=== PATIENT | female | born 1990 | race Caucasian/White ===

== ENCOUNTER → 2016-10-27 | Outpatient (CLI) | payer BC ==
[2016-10-27 16:35] LABS: BASOPHILS # (AUTO) 0.1 10^3/uL (0.0-0.1); BASOPHILS % (AUTO) 2 % (0-10); EOSINOPHILS # (AUTO) 0.1 10^3/uL (0.0-0.3); EOSINOPHILS % (AUTO) 1 % (0-10); LYMPHOCYTES # (AUTO) 1.9 X 10^3 (1.0-4.0); LYMPHOCYTES % (AUTO) 45 % (12-44); MEAN CORPUSCULAR HEMOGLOBIN 31 PG (25-34); MEAN CORPUSCULAR HGB CONC 35 G/DL (32-36); MEAN CORPUSCULAR VOLUME 89 FL (80-99); MEAN PLATELET VOLUME 8.9 FL (7.4-10.4); MONOCYTES # (AUTO) 0.4 X 10^3 (0.0-1.0); MONOCYTES % (AUTO) 10 % (0-12); NEUTROPHILS # (AUTO) 1.7 X 10^3 (1.8-7.8); NEUTROPHILS % (AUTO) 41 % (42-75); PLATELET COUNT 295 10^3/uL (130-400); RED BLOOD COUNT 4.58 10^6/uL (4.35-5.85); RED CELL DISTRIBUTION WIDTH 11.2 % (10.0-14.5); WHITE BLOOD COUNT 4.2 10^3/uL (4.3-11.0)
[2016-10-27 16:56] LABS: ALANINE AMINOTRANSFERASE 46 U/L (0-55); ALBUMIN 4.2 G/DL (3.2-4.5); ANION GAP 8 MMOL/L (5-14); ASPARTATE AMINO TRANSFERASE 24 U/L (5-34); BILIRUBIN,TOTAL 0.3 MG/DL (0.1-1.0); BLOOD UREA NITROGEN 9 MG/DL (7-18); BUN/CREATININE RATIO 12; CALCIUM 9.2 MG/DL (8.5-10.1); CARBON DIOXIDE 26 MMOL/L (21-32); CHLORIDE 107 MMOL/L (98-107); CHOLESTEROL 204 MG/DL (< 200); CREATININE SERUM 0.77 MG/DL (0.60-1.30); DIRECT LDL 128 MG/DL (1-129); GFR ESTIMATED > 60; GLUCOSE 88 MG/DL (70-105); LIPASE 21 U/L (8-78); POTASSIUM 3.9 MMOL/L (3.6-5.0); SODIUM 141 MMOL/L (135-145); TRIGLYCERIDES 148 MG/DL (<150); VLDL CHOLESTEROL 30 MG/DL (5-40)
--- NOTE | 2016-10-27 16:56 | Diagnostic Imaging Report ---
Hepatic ultrasound. INDICATION: Right upper quadrant pain and nausea. FINDINGS: The visualized portions of the pancreas appear unremarkable. The liver demonstrates no focal lesion. There is homogeneous echotexture. There is hepatopetal flow in the portal vein seen. The gallbladder demonstrates no stones or wall thickening. No pericholecystic fluid. The CBD is 2 mm in caliber. The right kidney is 9.3 cm in length with no hydronephrosis or focal lesion. No fluid collection in the upper right abdomen is seen. Sonographic Morrow's sign is reportedly negative. IMPRESSION: Unremarkable exam. Dictated by: Dictated on workstation # [id number]
== END ==
LOC: RAD 16:03
PROVIDERS: ATTEND Family Medicine
DX: R10.11 Right upper quadrant pain (principal); R11.0 Nausea
CPT/HCPCS: 36415; 76705; 80053; 80061; 83690; 85025

== ENCOUNTER → 2018-08-27 | Outpatient (CLI) | payer BC ==
--- NOTE | 2018-08-27 11:39 | Diagnostic Imaging Report ---
INDICATION: survey. TECHNIQUE: Multiple real-time grayscale images were obtained over the gravid uterus. COMPARISON: None. FINDINGS: There is a single live fetus in a breech presentation. Placenta is posterior. Amniotic fluid volume is normal. heart rate was recorded at 144 beats per minute. Cervical length is 4.1 cm. survey demonstrates kidneys, bladder and stomach to be unremarkable. The brain is unremarkable. There is a four-chamber heart. There is a three-vessel cord with normal insertion. The spine is unremarkable. Biometrical measurements are as follows: Biparietal 4.91 cm, age 20 weeks 6 days. Head circumference 19.44 cm, age 21 weeks 5 days. Abdominal circumference 16.98 cm, age 22 weeks 0 days. Femur length 3.78 cm, age 22 weeks 1 days. Sonographic estimate age: 21 weeks 5 days. Sonographic estimated date of delivery: 01/02/2019. Estimated Weight: 462 gm (+/- 68 gm). LMP percentile: 78%. heart rate: 144 beats per minute. number: 1 of 1. IMPRESSION: Single live IUP of approximately 21 weeks 5 days gestational age. Estimated date of confinement sonographically is 01/02/2019. No complicating features are identified. Dictated by: Dictated on workstation # [id number]
== END ==
LOC: RAD 09:56
PROVIDERS: ATTEND Obstetrics & Gynecology
DX: Z36.89 Encounter for other specified antenatal screening (principal); Z3A.21 21 weeks gestation of pregnancy
CPT/HCPCS: 76805

== ENCOUNTER → 2018-12-11 | Outpatient (CLI) | payer BC ==
[~2018-12-11] MED LIST: ACET-77 PO; AMLO5TAB9 PO; IBUP-844 PO; LABE200T7 PO
== END ==
LOC: LABNPT 08:57
PROVIDERS: ATTEND Obstetrics & Gynecology
DX: O16.9 Unspecified maternal hypertension, unspecified trimester (principal)
CPT/HCPCS: 82570; 84156

== ENCOUNTER 2018-12-12 18:10 | Inpatient (IN) | payer BC ==
[2018-12-12] VITALS (8 sets, daily range): BP systolic 148–164; BP diastolic 80–104
[~2018-12-12] VITALS: Ht 175.3 cm; Wt 98.9 kg
--- NOTE | 2018-12-12 18:15 | NUR ---
CHRIS YORK admitted to room 3319-1, with an admitting diagnosis of INDUCTION OF LABOR PRECLAMPSIA, on 12/12/18 from HOME via AMBULATION accompanied by S/O .CHRIS YORK introduced to surroundings, call light, bed controls, phone, TV, temperature control, lights, meal times, smoking policy, visitor policy, side rail policy, bathrooms and showers. Patient Rights given to patient in the handbook. CHRIS YORK verbalizes understanding that [facility] is not responsible for the loss or damage to any personal effects or valuables that are kept in the patients posession during their hospitalization. The following Patient Care Plans were discussed with the PATIENT: Discharge Planning, CERVICAL RIPPENING, PAIN MANAGEMENT, and ACTIVE LABOR. CHRIS YORK verbalizes understanding of Interdisciplinary Patient Education. Patient and/or family were informed about the Rapid Response Team and its purpose.
[2018-12-12] MEDS ORDERED: MINERAL OIL CONCENTRATE 99.9% 15 ML UDC TOP PRN (18:30)
[2018-12-12] MEDS ORDERED: CALCIUM CARBONATE 500 MG (TUMS) TAB.CHEW PO PRN (18:30)
[2018-12-12] MEDS ORDERED: FAMOTIDINE 20 MG (PEPCID) TABLET PO PRN (18:30)
[2018-12-12] MEDS ORDERED: MISOPROSTOL 100 MCG (CYTOTEC) TAB PO ONE (18:30)
[2018-12-12] MEDS: D5 LR IV SOLUTION 1,000 ML IV SCH (19:42)
[2018-12-12 19:59] LABS: BASOPHILS % (AUTO) 0 % (0-10); EOSINOPHILS # (AUTO) 0.1 10^3/uL (0.0-0.3); EOSINOPHILS % (AUTO) 1 % (0-10); HEMATOCRIT 34 % (35-52); HEMOGLOBIN 11.6 G/DL (11.5-16.0); LYMPHOCYTES # (AUTO) 2.5 X 10^3 (1.0-4.0); LYMPHOCYTES % (AUTO) 21 % (12-44); MEAN CORPUSCULAR HEMOGLOBIN 32 PG (25-34); MEAN CORPUSCULAR HGB CONC 34 G/DL (32-36); MEAN CORPUSCULAR VOLUME 93 FL (80-99); MEAN PLATELET VOLUME 11.4 FL (7.4-10.4); MONOCYTES # (AUTO) 1.1 X 10^3 (0.0-1.0); MONOCYTES % (AUTO) 10 % (0-12); NEUTROPHILS # (AUTO) 7.9 X 10^3 (1.8-7.8); NEUTROPHILS % (AUTO) 68 % (42-75); PLATELET COUNT 238 10^3/uL (130-400); RED CELL DISTRIBUTION WIDTH 12.5 % (10.0-14.5); WHITE BLOOD COUNT 11.6 10^3/uL (4.3-11.0)
[2018-12-12 20:06] LABS: BILIRUBIN,URINE NEGATIVE (NEGATIVE); CLARITY,URINE CLEAR; COLOR,URINE YELLOW; GLUCOSE, URINE (UA) NEGATIVE (NEGATIVE); KETONES,URINE NEGATIVE (NEGATIVE); LEUKOCYTE ESTERASE ,URINE NEGATIVE (NEGATIVE); NITRITE,URINE NEGATIVE (NEGATIVE); PH,URINE 6 (5-9); PROTEIN,URINE 3+ (NEGATIVE); UROBILINOGEN,URINE NORMAL (NORMAL)
[2018-12-12] MEDS: BETAMETHASONE ACE/NA PHOS 6 MG/ML (CELESTONE SOLUSPAN) IM SCH (20:06)
[2018-12-12 20:16] LABS: ALANINE AMINOTRANSFERASE 15 U/L (0-55); ALBUMIN 3.3 GM/DL (3.2-4.5); ALKALINE PHOSPHATASE 96 U/L (40-136); BILIRUBIN,TOTAL 0.2 MG/DL (0.1-1.0); BUN/CREATININE RATIO 20; CALCIUM 9.5 MG/DL (8.5-10.1); CARBON DIOXIDE 18 MMOL/L (21-32); CHLORIDE 104 MMOL/L (98-107); CREATININE SERUM 0.74 MG/DL (0.60-1.30); GFR ESTIMATED > 60; GLUCOSE 80 MG/DL (70-105); POTASSIUM 4.1 MMOL/L (3.6-5.0); SODIUM 134 MMOL/L (135-145); TOTAL PROTEIN 6.5 GM/DL (6.4-8.2)
[2018-12-12 20:18] LABS: BACTERIA,URINE FEW /HPF; SQUAMOUS EPITHELIAL CELL,UR 0-2 /HPF; WBC,URINE RARE /HPF
[2018-12-12] MEDS ORDERED: ZOLPIDEM 5 MG (AMBIEN) TAB PO ONE (21:00)
[2018-12-12] MEDS: ACETAMINOPHEN 500 MG TAB (TYLENOL) PO PRN (22:35)
[2018-12-12] MEDS: CATHETER FLUSH 10 ML SYR IV SCH (22:46)
[2018-12-13] VITALS (33 sets, daily range): BP systolic 123–169; BP diastolic 54–94
[2018-12-13] MEDS: MISOPROSTOL 100 MCG (CYTOTEC) TAB PO SCH ×5 (00:24→20:06)
[2018-12-13] MEDS: D5 LR IV SOLUTION 1,000 ML IV SCH ×3 (02:45→18:08)
--- NOTE | 2018-12-13 07:00 | NUR ---
REPORT FROM MIKE ARCHULETA.
[2018-12-13] MEDS: CATHETER FLUSH 10 ML SYR IV SCH ×3 (07:07→22:10)
--- NOTE | 2018-12-13 08:45 | Progress Note-Standard ---
Standard Progress Note Progress Notes/Assess & Plan Date Seen by a Provider: Dec 13, 2018 Time Seen by a Provider: 08:25 Progress/Assessment & Plan Admission labs were essentially the same but P/C ratio. BP elevated, but not treatment level. Much better today. Mild headache but much better today. Ate breakfast. No nausea, no emesis, no abdominal pain, some cramping. TOCO- uterine irritability FHT - reassuring SVE ft-1/50/-2 12/12/18 12/12/18 12/12/18 12/12/18 20:55 21:25 22:00 22:45 Pulse 57 54 53 54 Resp 18 18 18 18 B/P (MAP) 158/96 (116) 156/94 (114) 157/80 (105) 148/80 (102) O2 Delivery Room Air Room Air Room Air Room Air 12/12/18 12/13/18 12/13/18 12/13/18 23:45 00:30 01:25 02:25 Temp 97.0 Pulse 62 65 61 59 Resp 18 16 18 18 B/P (MAP) 164/104 (124) 143/85 (104) 158/91 (113) 134/86 (102) O2 Delivery Room Air Room Air Room Air Room Air 12/13/18 12/13/18 12/13/18 12/13/18 03:30 04:30 05:30 06:30 Temp 97.7 Pulse 56 59 55 83 Resp 18 18 18 18 B/P (MAP) 128/82 (97) 153/79 (103) 144/81 (102) 139/94 (109) O2 Delivery Room Air Room Air Room Air Room Air Laboratory Tests Test 12/12/18 18:30 12/12/18 19:35 Range/Units Urine Color YELLOW Urine Clarity CLEAR Urine pH 6 5-9 Urine Specific [place] 1.020 1.016-1.022 Urine Protein 3+ H NEGATIVE Urine Glucose (UA) NEGATIVE NEGATIVE Urine Ketones NEGATIVE NEGATIVE Urine Nitrite NEGATIVE NEGATIVE Urine Bilirubin NEGATIVE NEGATIVE Urine Urobilinogen NORMAL NORMAL MG/DL Urine Leukocyte Esterase NEGATIVE NEGATIVE Urine RBC (Auto) NEGATIVE NEGATIVE Urine RBC NONE /HPF Urine WBC RARE /HPF Urine Squamous Epithelial Cells 0-2 /HPF Urine Crystals NONE /LPF Urine Bacteria FEW H /HPF Urine Casts NONE /LPF Urine Mucus NEGATIVE /LPF Urine Culture Indicated CULTURE PENDING Urine Creatinine 98 30-125 MG/DL Urine Protein/Creatinine Ratio 1.22 White Blood Count 11.6 H 4.3-11.0 10^3/uL Red Blood Count 3.64 L 4.35-5.85 10^6/uL Hemoglobin 11.6 11.5-16.0 G/DL Hematocrit 34 L 35-52 % Mean Corpuscular Volume 93 80-99 FL Mean Corpuscular Hemoglobin 32 25-34 PG Mean Corpuscular Hemoglobin Concent 34 32-36 G/DL Red Cell Distribution Width 12.5 10.0-14.5 % Platelet Count 238 130-400 10^3/uL Mean Platelet Volume 11.4 H 7.4-10.4 FL Neutrophils (%) (Auto) 68 42-75 % Lymphocytes (%) (Auto) 21 12-44 % Monocytes (%) (Auto) 10 0-12 % Eosinophils (%) (Auto) 1 0-10 % Basophils (%) (Auto) 0 0-10 % Neutrophils # (Auto) 7.9 H 1.8-7.8 X 10^3 Lymphocytes # (Auto) 2.5 1.0-4.0 X 10^3 Monocytes # (Auto) 1.1 H 0.0-1.0 X 10^3 Eosinophils # (Auto) 0.1 0.0-0.3 10^3/uL Basophils # (Auto) 0.0 0.0-0.1 10^3/uL Sodium Level 134 L 135-145 MMOL/L Potassium Level 4.1 3.6-5.0 MMOL/L Chloride Level 104 98-107 MMOL/L Carbon Dioxide Level 18 L 21-32 MMOL/L Anion Gap 12 5-14 MMOL/L Blood Urea Nitrogen 15 7-18 MG/DL Creatinine 0.74 0.60-1.30 MG/DL Estimat Glomerular Filtration Rate > 60 BUN/Creatinine Ratio 20 Glucose Level 80 70-105 MG/DL Calcium Level 9.5 8.5-10.1 MG/DL Corrected Calcium 10.1 8.5-10.1 MG/DL Total Bilirubin 0.2 0.1-1.0 MG/DL Aspartate Amino Transf (AST/SGOT) 17 5-34 U/L Alanine Aminotransferase (ALT/SGPT) 15 0-55 U/L Alkaline Phosphatase 96 40-136 U/L Lactate Dehydrogenase 179 125-220 U/L Total Protein 6.5 6.4-8.2 GM/DL Albumin 3.3 3.2-4.5 GM/DL tr-1+ edema Final Diagnosis 1. Moderate to severe preeclampsia 2. 36 week gestation continue misoprostol, betamethasone x 1 given, will repeat. Plan AROM and augmentation as needed. JOHNSON ROSS DO Dec 13, 2018 08:45
[2018-12-13] MEDS: ACETAMINOPHEN 500 MG TAB (TYLENOL) PO PRN ×2 (09:12→19:40)
[2018-12-13] MEDS: BETAMETHASONE ACE/NA PHOS 6 MG/ML (CELESTONE SOLUSPAN) IM SCH (09:12)
[2018-12-13] MEDS ORDERED: MISOPROSTOL 100 MCG (CYTOTEC) TAB ONE (19:51)
[2018-12-13] MEDS ORDERED: MISOPROSTOL 100 MCG (CYTOTEC) TAB PO ONE (20:00)
[2018-12-13] MEDS ORDERED: morphine INJ 10 MG/ML 1ML (SYR OR VIAL) ONE (20:22)
[2018-12-13] MEDS ORDERED: morphine INJ 4 MG/ML 1 ML (VIAL/SYRINGE) IVP PRN (20:30)
[2018-12-13] MEDS: morphine INJ 10 MG/ML 1ML (SYR OR VIAL) IV PRN (20:32)
[2018-12-13] MEDS ORDERED: ZOLPIDEM 5 MG (AMBIEN) TAB PO NR (21:00)
[2018-12-13] MEDS ORDERED: PROMETHAZINE INJ 25 MG/ML (PHENERGAN) AMP IVP PRN (21:45)
[2018-12-14] VITALS (71 sets, daily range): BP systolic 103–178; BP diastolic 52–112
[2018-12-14] MEDS: MISOPROSTOL 100 MCG (CYTOTEC) TAB PO SCH ×2 (00:06→04:25)
[2018-12-14] MEDS ORDERED: fentaNYL INJECTION 100 MCG/2 ML AMP IVP PRN (00:15)
[2018-12-14] MEDS: D5 LR IV SOLUTION 1,000 ML IV SCH ×2 (00:59→10:00)
[2018-12-14] MEDS ORDERED: fentaNYL INJECTION 100 MCG/2 ML AMP ONE ×2 (02:21→07:31)
[2018-12-14] MEDS ORDERED: OXYTOCIN/NORMAL SALINE 500 ML IV ONE (04:06)
[2018-12-14] MEDS ORDERED: OXYTOCIN/NORMAL SALINE 500 ML IV SCH ×2 (04:09→15:40)
[2018-12-14] MEDS: morphine INJ 10 MG/ML 1ML (SYR OR VIAL) IV PRN (05:15)
[2018-12-14] MEDS: CATHETER FLUSH 10 ML SYR IV SCH (06:44)
--- NOTE | 2018-12-14 07:10 | NUR ---
report received from monisha wang
--- NOTE | 2018-12-14 07:22 | NUR ---
this rn calls anesthesia for epidural placement at this time. pt co pain 02/16, 3-4cm, on pitocin. pablo Bah states they are busy downstairs and will get up to LD when he can.
--- NOTE | 2018-12-14 07:30 | NUR ---
robbin head host/hostess at bedside for epidural placement at this time.
[2018-12-14] MEDS ORDERED: SUFENTA 0.6MCG/ML BUPIVA 0.125 100 ML ONE (07:32)
--- NOTE | 2018-12-14 08:15 | NUR ---
dr walden at bedside for evaluation. this rn gives dr updated pt report. epidural started, prolonged decels x2, interventions done including pitocin turned off. dr reviewed fht strip. dr walden states to let fetus recover for a while longer. continue to monitor fht strip, if get accels/reactive, rn may restart pitocin back at 2 milliunits/hr and continue to increase per protocol.
[2018-12-14] MEDS ORDERED: LACTATED RINGERS 1,000 ML IV ONE (09:52)
[2018-12-14] MEDS ORDERED: METOCLOPRAMIDE INJ 10 MG/2 ML (REGLAN) IV PRN (10:00)
[2018-12-14] MEDS ORDERED: EPIDURAL (SUFENTA 0.6MCG/ML BUPIVA 0.125%) 100 ML BAG EPI PRN (10:00)
[2018-12-14] MEDS ORDERED: NALOXONE 0.4 MG/ML 1 ML (NARCAN) VIAL IV PRN ×2 (10:00)
[2018-12-14] MEDS ORDERED: ONDANSETRON 4 MG/2 ML (SDV) Z0FRAN IV PRN (10:00)
[2018-12-14] MEDS ORDERED: diphenhydrAMINE 50 MG/ML INJ (BENADRYL) IV PRN (10:00)
--- NOTE | 2018-12-14 10:59 | NUR ---
dr walden called this rn for updated pt report. this rn reports pitocin restarted and now at 10 milliunits/hr. uc pattern, reactive fht, latest sve. no new orders at this time.
--- NOTE | 2018-12-14 15:31 | NUR ---
1531: RECOVERY PERIOD BEGINS AT THIS TIME. PERICARE AND LINEN CHANGE BY THIS RN. FUNDUS 2 BELOW UMBILICUS, FIRM, MIDLINE, LIGHT BLEEDING. VSS. PT DENIES NEEDS AT THIS TIME. CALL LIGHT WITHIN REACH. 1545: FUNDUS 2 BELOW UMBILICUS, FIRM, MIDLINE, LIGHT BLEEDING. VSS. PT DENIES NEEDS AT THIS TIME. CALL LIGHT WITHIN REACH. 1600: FUNDUS 2 BELOW UMBILICUS, FIRM, MIDLINE, LIGHT BLEEDING. VSS. PT DENIES NEEDS AT THIS TIME. CALL LIGHT WITHIN REACH. 1615: FUNDUS 2 BELOW UMBILICUS, FIRM, MIDLINE, LIGHT BLEEDING. VSS. PT DENIES NEEDS AT THIS TIME. CALL LIGHT WITHIN REACH. PT 1630: PERICARE AND LINEN CHANGE BY THIS RN. END OF 1 HR RECOVERY PERIOD. FUNDUS 2 BELOW UMBILICUS, FIRM, MIDLINE, LIGHT BLEEDING. VSS. PT DENIES NEEDS AT THIS TIME. CALL LIGHT WITHIN REACH. VISITORS AT BEDSIDE.
[2018-12-14] MEDS ORDERED: TETANUS,DIPTH,PERTUSS P/F (BOOSTRIX) 0.5 ML VIAL IM ONE (15:45)
[2018-12-14] MEDS ORDERED: DIBUCAINE (NUPERCAINAL) 1% OINT 30 GM TOP PRN (15:45)
[2018-12-14] MEDS ORDERED: WITCH HAZEL(TUCKS) 40 EA JAR TOP PRN (15:45)
[2018-12-14] MEDS ORDERED: MEASLES,MUMPS,RUBELLA 1 EA INJ SQ ONE (15:45)
[2018-12-14] MEDS ORDERED: BENZOCAINE/MENTHOL (DERMOPLAST) 56 ML CAN TP PRN (15:45)
--- NOTE | 2018-12-14 15:55 | OB Labor & Delivery Record ---
Vag Delivery Note Vag Delivery Note Date of Delivery: 12/14/18 Preoperative Diagnosis: Celina Hicks is a (28 /Para 1/0 ,Gestational Age 36 6/7 weeks with preeclampsia Postoperative Diagnosis: Same Surgeon: JOHNSON ROSS Gis Mapping Technician: arpit Resendez, MS III Anesthesia: epidural, local Delivery Type: vaginal Findings: Viable male infant, apgars 9/9, weight 6#8oz Lacerations:1st degree Intact placenta with 3 vessel cord. No nuchal cord, body cord or shoulder dystocia Estimated Blood Loss: 150 ml Complications: None Condition: Stable Description of Procedure: The patient is a 28 year old female who presented 28 /Para 1/0 , Gestational Age 36 6/7 weeks with preeclampsia. She was admitted and informed consent was obtained. Her labor course was remarkable for [] She progressed to c omplete dilatation and began to push. She was then set up for delivery. The 's head was delivered atraumatically in the KRISTINA position. The shoulders and remainder of the 's body were then delivered without difficulty. Upon delivery, the head was held below the level of the perineum and the mouth and nares were bulb suctioned. The cord was doubly clamped and cut and the infant was handed off to the pediatric staff. An intact placenta with 3-vessel cord delivered via Mitul and there was found to be minimal bleeding.~ Vigorous fundal massage was performed and the fundus was found to be firm. IV oxytocin was given. Examination of the vagina and perineum revealed a 1st laceration repaired in the usual fashion with 3-0 vicryl suture. Following the repair, sponge, instrument and needle counts were correct. Mom and baby were both in stable condition in the labor suite. Vitals - Labs Vital Signs - I&O Vital Signs Date Time Temp Pulse Resp B/P (MAP) Pulse Ox O2 Delivery O2 Flow Rate FiO2 12/14/18 13:30 98.5 84 133/72 (92) Room Air 12/14/18 13:15 100 168/81 (110) Room Air 12/14/18 13:00 75 144/85 (104) Room Air 12/14/18 12:45 68 131/83 (99) Room Air 12/14/18 12:30 98.1 80 18 165/85 (111) Room Air 12/14/18 12:15 63 150/84 (106) Room Air 12/14/18 12:00 61 137/72 (93) Room Air 12/14/18 11:45 72 139/69 (92) Room Air 12/14/18 11:30 97.4 68 18 139/77 (97) Room Air 12/14/18 11:15 63 138/74 (95) Room Air 12/14/18 11:00 64 144/79 (100) Room Air 12/14/18 10:45 75 155/82 (106) Room Air 12/14/18 10:30 71 137/83 (101) Room Air 12/14/18 10:15 73 154/73 (100) Room Air 12/14/18 10:00 90 121/70 (87) 100 Room Air 12/14/18 09:45 68 121/68 (85) 100 Room Air 12/14/18 09:30 97.3 89 18 132/71 (91) 100 Room Air 12/14/18 09:15 57 112/53 (72) 97 Non Rebreather 10.00 12/14/18 09:00 60 108/53 (71) 100 Non Rebreather 10.00 12/14/18 08:45 63 110/53 (72) 100 Non Rebreather 10.00 12/14/18 08:40 58 115/55 (75) 100 Non Rebreather 10.00 12/14/18 08:35 59 104/53 (70) 100 Non Rebreather 10.00 12/14/18 08:30 58 103/52 (69) 100 Non Rebreather 10.00 12/14/18 08:25 59 104/52 (69) 100 Non Rebreather 10.00 12/14/18 08:20 62 103/54 (70) 100 Non Rebreather 10.00 12/14/18 08:15 109 122/61 (81) 94 Non Rebreather 10.00 12/14/18 08:10 58 124/57 (79) 100 Non Rebreather 10.00 12/14/18 08:06 65 126/59 (81) 100 Non Rebreather 10.00 12/14/18 08:02 65 130/61 (84) Non Rebreather 10.00 12/14/18 08:00 97.9 112 20 122/60 (80) 100 Non Rebreather 10.00 12/14/18 07:56 76 114/53 (73) Room Air 12/14/18 07:53 88 149/70 (96) Room Air 12/14/18 07:45 86 156/74 (101) Room Air 12/14/18 07:30 109 164/94 (117) Room Air 12/14/18 07:15 98.3 90 22 168/82 (110) Room Air 12/14/18 07:00 74 22 139/78 (98) Room Air 12/14/18 06:45 88 22 136/97 (110) Room Air 12/14/18 06:35 97.4 72 22 134/83 (100) Room Air 12/14/18 06:15 72 18 160/74 (102) Room Air 12/14/18 06:00 62 18 159/75 (103) Room Air 12/14/18 05:45 66 18 166/88 (114) Room Air 12/14/18 05:30 65 18 140/81 (100) Room Air 12/14/18 05:15 120 24 171/99 (123) Room Air 12/14/18 05:00 117 24 178/112 (134) Room Air 12/14/18 04:45 65 24 137/71 (93) Room Air 12/14/18 04:30 78 18 157/90 (112) Room Air 12/14/18 04:05 97.4 76 18 161/85 (110) Room Air 12/14/18 03:35 76 18 143/83 (103) Room Air 12/14/18 03:05 73 18 128/75 (92) Room Air 12/14/18 02:35 75 18 132/71 (91) Room Air 12/14/18 02:05 97.9 62 18 131/68 (89) Room Air 12/14/18 01:35 61 18 126/66 (86) Room Air 12/14/18 01:05 61 18 127/68 (87) Room Air 12/14/18 00:35 60 18 127/61 (83) Room Air 12/14/18 00:05 97.1 66 18 150/70 (96) Room Air 12/13/18 23:35 73 18 127/63 (84) Room Air 12/13/18 23:05 61 18 124/61 (82) Room Air 12/13/18 22:35 76 18 142/77 (98) Room Air 12/13/18 22:05 71 18 134/76 (95) Room Air 12/13/18 21:30 80 18 136/68 (90) Room Air 12/13/18 21:05 97.2 68 18 123/70 (87) Room Air 12/13/18 20:30 71 18 130/75 (93) Room Air 12/13/18 20:05 76 18 143/83 (103) Room Air 12/13/18 19:35 97.6 86 18 142/81 (101) Room Air 12/13/18 19:00 86 18 141/82 (101) Room Air 12/13/18 18:30 75 18 157/76 (103) Room Air 12/13/18 18:00 65 18 157/86 (109) Room Air 12/13/18 17:30 98.2 61 18 155/77 (103) Room Air 12/13/18 17:00 67 18 166/81 (109) Room Air 12/13/18 16:30 75 18 156/91 (112) Room Air 12/13/18 16:07 68 18 152/88 (109) Room Air 12/13/18 16:05 97.3 70 18 169/92 (117) Room Air I & O 12/14/18 07:00 Intake Total 4750 ml Balance 4750 ml Labs Microbiology 12/12/18 Urine Culture - Final, Complete NO GROWTH JOHNSON ROSS DO Dec 14, 2018 15:54
[2018-12-14] MEDS: IBUPROFEN 600 MG (MOTRIN) TAB PO SCH ×2 (16:50→23:24)
--- NOTE | 2018-12-14 19:05 | NUR ---
report given to monisha queen at this time
[2018-12-14] MEDS ORDERED: CATHETER FLUSH 10 ML SYR IV SCH (22:00)
[2018-12-14] MEDS: DOCUSATE SODIUM 100 MG (COLACE) CAP PO SCH (23:24)
[2018-12-15 06:31] VITALS: BP 151/89
[2018-12-15] MEDS: IBUPROFEN 600 MG (MOTRIN) TAB PO SCH ×3 (06:31→19:45)
[2018-12-15 06:43] LABS: BASOPHILS % (AUTO) 0 % (0-10); EOSINOPHILS % (AUTO) 0 % (0-10); HEMATOCRIT 28 % (35-52); HEMOGLOBIN 9.7 G/DL (11.5-16.0); LYMPHOCYTES # (AUTO) 2.3 X 10^3 (1.0-4.0); LYMPHOCYTES % (AUTO) 18 % (12-44); MEAN CORPUSCULAR HEMOGLOBIN 33 PG (25-34); MEAN CORPUSCULAR HGB CONC 34 G/DL (32-36); MEAN CORPUSCULAR VOLUME 95 FL (80-99); MEAN PLATELET VOLUME 11.1 FL (7.4-10.4); MONOCYTES # (AUTO) 1.2 X 10^3 (0.0-1.0); MONOCYTES % (AUTO) 9 % (0-12); NEUTROPHILS # (AUTO) 9.3 X 10^3 (1.8-7.8); NEUTROPHILS % (AUTO) 73 % (42-75); PLATELET COUNT 195 10^3/uL (130-400); RED CELL DISTRIBUTION WIDTH 12.7 % (10.0-14.5); WHITE BLOOD COUNT 12.8 10^3/uL (4.3-11.0)
[2018-12-15 09:22] VITALS: BP 131/76
[2018-12-15] MEDS: DOCUSATE SODIUM 100 MG (COLACE) CAP PO SCH ×2 (09:22→19:46)
[2018-12-15] MEDS: PRENATAL VITAMIN 1 EA TAB PO SCH (09:22)
[2018-12-15] MEDS: ACETAMINOPHEN 500 MG TAB (TYLENOL) PO SCH ×2 (09:22→19:45)
--- NOTE | 2018-12-15 09:22 | NUR ---
AM shift assessment completed and vital signs obtained, see interventions. Plan of care reviewed with patient. Patient verbalizes understanding and questions answered. Scheduled PNV, Tylenol, and Colace PO given. Saline lock DC'd at this time, tip intact. Band aid applied to site. Shower supplies provided.
--- NOTE | 2018-12-15 10:15 | NUR ---
Dr. De La Cruz here to see patient.
--- NOTE | 2018-12-15 10:28 | Anesthesia-Regional Post-Op ---
Regional Patient Condition Mental Status: Alert, Oriented x3 Circulation: Same as Pre-Op Headache: Absent Sensation: Full Recovery Motor Block: Absent Post Op Complications Complications None Follow Up Care/Instructions Patient Instructions None needed. Anesthesia/Patient Condition Patient is doing well, no complaints, stable vital signs, no apparent adverse anesthesia problems. No complications reported per nursing. KOJO MEJIA CRNA Dec 15, 2018 10:28
[2018-12-15 12:21] VITALS: BP 157/84
--- NOTE | 2018-12-15 12:32 | Postpartum Progress Note ---
Note Note Day # 1 s/p Subjective: Patient is without complaints. Ambulating, voiding. Tolerating a regular diet w ithout nausea or vomiting. Normal lochia. Pain is well controlled with oral pain medications. breast feeding. BP ;labile. She is feeling fine. Objective: Laboratory Tests Test 12/15/18 06:34 Range/Units White Blood Count 12.8 H 4.3-11.0 10^3/uL Red Blood Count 2.98 L 4.35-5.85 10^6/uL Hemoglobin 9.7 L 11.5-16.0 G/DL Hematocrit 28 L 35-52 % Mean Corpuscular Volume 95 80-99 FL Mean Corpuscular Hemoglobin 33 25-34 PG Mean Corpuscular Hemoglobin Concent 34 32-36 G/DL Red Cell Distribution Width 12.7 10.0-14.5 % Platelet Count 195 130-400 10^3/uL Mean Platelet Volume 11.1 H 7.4-10.4 FL Neutrophils (%) (Auto) 73 42-75 % Lymphocytes (%) (Auto) 18 12-44 % Monocytes (%) (Auto) 9 0-12 % Eosinophils (%) (Auto) 0 0-10 % Basophils (%) (Auto) 0 0-10 % Neutrophils # (Auto) 9.3 H 1.8-7.8 X 10^3 Lymphocytes # (Auto) 2.3 1.0-4.0 X 10^3 Monocytes # (Auto) 1.2 H 0.0-1.0 X 10^3 Eosinophils # (Auto) 0.0 0.0-0.3 10^3/uL Basophils # (Auto) 0.0 0.0-0.1 10^3/uL 12/15/18 12/15/18 06:31 09:22 Temp 98.7 98.9 Pulse 72 70 Resp 18 16 B/P (MAP) 151/89 (109) 131/76 (94) Pulse Ox 97 98 O2 Delivery Room Air Room Air 12/15/18 00:00 Intake Total 1350 ml Output Total 200 ml Balance 1150 ml Physical Exam: General - Alert and oriented, no apparent distress Abdomen - Soft, appropriately tender to palpation, non-distended, fundus firm at umbilicus Extremities - 2+ edema, negative Aristides's bilaterally Assessment: 1. post- day # 1, status post spontaneous vaginal delivery. 2. preeclampsia - will monitor blood pressures closely Recovering well, hemodynamically stable [] Plan: Routine care. Encourage breast feeding. Encourage ambulation. Ferrous sulfate supplementation. Plan for discharge [] Vitals - Labs Vital Signs - I&O Vital Signs Date Time Temp Pulse Resp B/P (MAP) Pulse Ox O2 Delivery O2 Flow Rate FiO2 12/15/18 09:22 98.9 70 16 131/76 (94) 98 Room Air 12/15/18 06:31 98.7 72 18 151/89 (109) 97 Room Air 12/14/18 23:24 98.7 76 18 140/77 (98) 98 Room Air 12/14/18 20:05 98.0 68 18 149/84 (105) 99 Room Air 12/14/18 17:00 77 137/71 (93) Room Air 12/14/18 16:45 98.0 67 16 135/66 (89) Room Air 12/14/18 16:33 77 145/76 (99) Room Air 12/14/18 16:17 68 129/64 (85) Room Air 12/14/18 16:02 69 124/61 (82) Room Air 12/14/18 15:47 77 139/66 (90) Room Air 12/14/18 15:32 88 145/70 (95) Room Air 12/14/18 15:26 65 16 144/61 (88) Room Air 12/14/18 15:11 98.1 80 154/70 (98) Room Air 12/14/18 14:45 80 175/81 (112) Room Air 12/14/18 14:30 107 174/97 (122) Room Air 12/14/18 14:15 106 22 168/95 (119) Room Air 12/14/18 14:00 110 160/91 (114) Room Air 12/14/18 13:45 103 144/86 (105) Room Air 12/14/18 13:30 98.5 84 133/72 (92) Room Air 12/14/18 13:15 100 168/81 (110) Room Air 12/14/18 13:00 75 144/85 (104) Room Air 12/14/18 12:45 68 131/83 (99) Room Air I & O 12/15/18 07:00 Intake Total 2950 ml Output Total 200 ml Balance 2750 ml Labs Laboratory Tests 12/15/18 06:34: White Blood Count 12.8H, Red Blood Count 2.98L, Hemoglobin 9.7L, Hematocrit 28L, Mean Corpuscular Volume 95, Mean Corpuscular Hemoglobin 33, Mean Corpuscular Hemoglobin Concent 34, Red Cell Distribution Width 12.7, Platelet Count 195, Mean Platelet Volume 11.1H, Neutrophils (%) (Auto) 73, Lymphocytes (%) (Auto) 18, Monocytes (%) (Auto) 9, Eosinophils (%) (Auto) 0, Basophils (%) (Auto) 0, Neutrophils # (Auto) 9.3H, Lymphocytes # (Auto) 2.3, Monocytes # (Auto) 1.2H, Eosinophils # (Auto) 0.0, Basophils # (Auto) 0.0 Microbiology 12/12/18 Urine Culture - Final, Complete NO GROWTH JOHNSON ROSS DO Dec 15, 2018 12:32
[2018-12-15 16:17] VITALS: BP 158/83
--- NOTE | 2018-12-15 19:51 | NUR ---
Pt sitting up in bed. family at bedside. assessment completed. pt requesting pads. more pads provided. ice water filled up. pt denies any s/s or complaints. will continue to monitor.
[2018-12-15 20:00] VITALS: BP 182/102
[2018-12-15 21:00] VITALS: BP 167/86
--- NOTE | 2018-12-15 21:01 | NUR ---
notified of prior b/p and assessment. new orders received.
[2018-12-15] MEDS ORDERED: LABETALOL 200 MG (NORMODYNE) TAB PO ONE (21:06)
[2018-12-15] MEDS: LABETALOL 200 MG (NORMODYNE) TAB PO SCH (21:13)
--- NOTE | 2018-12-15 21:16 | NUR ---
labetalol given. plan of care discussed with pt. no questions at this time.
[2018-12-16] VITALS (8 sets, daily range): BP systolic 143–181; BP diastolic 76–90
[2018-12-16] MEDS: ACETAMINOPHEN 500 MG TAB (TYLENOL) PO SCH ×2 (03:41→15:40)
[2018-12-16] MEDS: IBUPROFEN 600 MG (MOTRIN) TAB PO SCH ×4 (03:41→21:00)
--- NOTE | 2018-12-16 04:00 | NUR ---
notified of pt's b/p readings. new orders received.
[2018-12-16] MEDS ORDERED: LABETALOL 200 MG (NORMODYNE) TAB PO PRN (08:00)
[2018-12-16] MEDS: DOCUSATE SODIUM 100 MG (COLACE) CAP PO SCH ×2 (09:20→21:00)
[2018-12-16] MEDS: PRENATAL VITAMIN 1 EA TAB PO SCH (09:20)
[2018-12-16] MEDS: LABETALOL 200 MG (NORMODYNE) TAB PO SCH ×2 (09:20→21:00)
--- NOTE | 2018-12-16 09:25 | NUR ---
dr walden notified by this RN of AM blood pressure. no new orders at this time. will continue to monitor.
--- NOTE | 2018-12-16 10:27 | Postpartum Progress Note ---
Note Note Day # 2 s/p BP higher last night and labetalol started (200 mg po bid). elevated this am but labetalol just given. Awaiting repeat. States she feels well. No headaches, no SOA or dyspnea, no chest pain. No complaints Subjective: Patient is without complaints. Ambulating, voiding. Tolerating a regular diet without nausea or vomiting. Normal lochia. Pain is well controlled with oral pain medications. breast feeding. Objective: 12/16/18 12/16/18 12/16/18 12/16/18 00:09 03:30 03:34 09:15 Temp 98.2 98.4 99.7 Pulse 66 85 72 60 Resp 16 18 16 18 B/P (MAP) 151/90 (110) 172/80 (110) 162/87 (112) 176/87 (116) Pulse Ox 98 98 99 O2 Delivery Room Air Room Air Room Air VS - Last 72 Hours, by Label 12/13/18 12/13/18 12/13/18 12/13/18 10:30 11:30 12:30 13:30 Temp 99.0 Pulse 60 59 55 60 Resp 18 18 18 18 B/P (MAP) 136/77 (96) 153/54 (87) 154/90 (111) 160/72 (101) O2 Delivery Room Air Room Air Room Air Room Air 12/13/18 12/13/18 12/13/18 12/13/18 14:30 15:30 16:05 16:07 Temp 98.7 97.3 Pulse 61 65 70 68 Resp 18 18 18 18 B/P (MAP) 151/74 (99) 145/81 (102) 169/92 (117) 152/88 (109) O2 Delivery Room Air Room Air Room Air Room Air 12/13/18 12/13/18 12/13/18 12/13/18 16:30 17:00 17:30 18:00 Temp 98.2 Pulse 75 67 61 65 Resp 18 18 18 18 B/P (MAP) 156/91 (112) 166/81 (109) 155/77 (103) 157/86 (109) O2 Delivery Room Air Room Air Room Air Room Air 12/13/18 12/13/18 12/13/18 12/13/18 18:30 19:00 19:35 20:05 Temp 97.6 Pulse 75 86 86 76 Resp 18 18 18 18 B/P (MAP) 157/76 (103) 141/82 (101) 142/81 (101) 143/83 (103) O2 Delivery Room Air Room Air Room Air Room Air 12/13/18 12/13/18 12/13/18 12/13/18 20:30 21:05 21:30 22:05 Temp 97.2 Pulse 71 68 80 71 Resp 18 18 18 18 B/P (MAP) 130/75 (93) 123/70 (87) 136/68 (90) 134/76 (95) O2 Delivery Room Air Room Air Room Air Room Air 12/13/18 12/13/18 12/13/18 12/14/18 22:35 23:05 23:35 00:05 Temp 97.1 Pulse 76 61 73 66 Resp 18 18 18 18 B/P (MAP) 142/77 (98) 124/61 (82) 127/63 (84) 150/70 (96) O2 Delivery Room Air Room Air Room Air Room Air 12/14/18 12/14/18 12/14/18 12/14/18 00:35 01:05 01:35 02:05 Temp 97.9 Pulse 60 61 61 62 Resp 18 18 18 18 B/P (MAP) 127/61 (83) 127/68 (87) 126/66 (86) 131/68 (89) O2 Delivery Room Air Room Air Room Air Room Air 12/14/18 12/14/18 12/14/18 12/14/18 02:35 03:05 03:35 04:05 Temp 97.4 Pulse 75 73 76 76 Resp 18 18 18 18 B/P (MAP) 132/71 (91) 128/75 (92) 143/83 (103) 161/85 (110) O2 Delivery Room Air Room Air Room Air Room Air 12/14/18 12/14/18 12/14/18 12/14/18 04:30 04:45 05:00 05:15 Pulse 78 65 117 120 Resp 18 24 24 24 B/P (MAP) 157/90 (112) 137/71 (93) 178/112 (134) 171/99 (123) O2 Delivery Room Air Room Air Room Air Room Air 12/14/18 12/14/18 12/14/18 12/14/18 05:30 05:45 06:00 06:15 Pulse 65 66 62 72 Resp 18 18 18 18 B/P (MAP) 140/81 (100) 166/88 (114) 159/75 (103) 160/74 (102) O2 Delivery Room Air Room Air Room Air Room Air 12/14/18 12/14/18 12/14/18 12/14/18 06:35 06:45 07:00 07:15 Temp 97.4 98.3 Pulse 72 88 74 90 Resp 22 22 22 22 B/P (MAP) 134/83 (100) 136/97 (110) 139/78 (98) 168/82 (110) O2 Delivery Room Air Room Air Room Air Room Air 12/14/18 12/14/18 12/14/18 12/14/18 07:30 07:45 07:53 07:56 Pulse 109 86 88 76 B/P (MAP) 164/94 (117) 156/74 (101) 149/70 (96) 114/53 (73) O2 Delivery Room Air Room Air Room Air Room Air 12/14/18 12/14/18 12/14/18 12/14/18 08:00 08:02 08:06 08:10 Temp 97.9 Pulse 112 65 65 58 Resp 20 B/P (MAP) 122/60 (80) 130/61 (84) 126/59 (81) 124/57 (79) Pulse Ox 100 100 100 O2 Delivery Non Rebreather Non Rebreather Non Rebreather Non Rebreather O2 Flow Rate 10.00 10.00 10.00 10.00 12/14/18 12/14/18 12/14/18 12/14/18 08:15 08:20 08:25 08:30 Pulse 109 62 59 58 B/P (MAP) 122/61 (81) 103/54 (70) 104/52 (69) 103/52 (69) Pulse Ox 94 100 100 100 O2 Delivery Non Rebreather Non Rebreather Non Rebreather Non Rebreather O2 Flow Rate 10.00 10.00 10.00 10.00 12/14/18 12/14/18 12/14/18 12/14/18 08:35 08:40 08:45 09:00 Pulse 59 58 63 60 B/P (MAP) 104/53 (70) 115/55 (75) 110/53 (72) 108/53 (71) Pulse Ox 100 100 100 100 O2 Delivery Non Rebreather Non Rebreather Non Rebreather Non Rebreather O2 Flow Rate 10.00 10.00 10.00 10.00 12/14/18 12/14/18 12/14/18 12/14/18 09:15 09:30 09:45 10:00 Temp 97.3 Pulse 57 89 68 90 Resp 18 B/P (MAP) 112/53 (72) 132/71 (91) 121/68 (85) 121/70 (87) Pulse Ox 97 100 100 100 O2 Delivery Non Rebreather Room Air Room Air Room Air O2 Flow Rate 10.00 12/14/18 12/14/18 12/14/18 12/14/18 10:15 10:30 10:45 11:00 Pulse 73 71 75 64 B/P (MAP) 154/73 (100) 137/83 (101) 155/82 (106) 144/79 (100) O2 Delivery Room Air Room Air Room Air Room Air 12/14/18 12/14/18 12/14/18 12/14/18 11:15 11:30 11:45 12:00 Temp 97.4 Pulse 63 68 72 61 Resp 18 B/P (MAP) 138/74 (95) 139/77 (97) 139/69 (92) 137/72 (93) O2 Delivery Room Air Room Air Room Air Room Air 12/14/18 12/14/18 12/14/18 12/14/18 12:15 12:30 12:45 13:00 Temp 98.1 Pulse 63 80 68 75 Resp 18 B/P (MAP) 150/84 (106) 165/85 (111) 131/83 (99) 144/85 (104) O2 Delivery Room Air Room Air Room Air Room Air 12/14/18 12/14/18 12/14/18 12/14/18 13:15 13:30 13:45 14:00 Temp 98.5 Pulse 100 84 103 110 B/P (MAP) 168/81 (110) 133/72 (92) 144/86 (105) 160/91 (114) O2 Delivery Room Air Room Air Room Air Room Air 12/14/18 12/14/18 12/14/18 12/14/18 14:15 14:30 14:45 15:11 Temp 98.1 Pulse 106 107 80 80 Resp 22 B/P (MAP) 168/95 (119) 174/97 (122) 175/81 (112) 154/70 (98) O2 Delivery Room Air Room Air Room Air Room Air 12/14/18 12/14/18 12/14/18 12/14/18 15:26 15:32 15:47 16:02 Pulse 65 88 77 69 Resp 16 B/P (MAP) 144/61 (88) 145/70 (95) 139/66 (90) 124/61 (82) O2 Delivery Room Air Room Air Room Air Room Air 12/14/18 12/14/18 12/14/18 12/14/18 16:17 16:33 16:45 17:00 Temp 98.0 Pulse 68 77 67 77 Resp 16 B/P (MAP) 129/64 (85) 145/76 (99) 135/66 (89) 137/71 (93) O2 Delivery Room Air Room Air Room Air Room Air 12/14/18 12/14/18 12/15/18 12/15/18 20:05 23:24 06:31 09:22 Temp 98.0 98.7 98.7 98.9 Pulse 68 76 72 70 Resp 18 18 18 16 B/P (MAP) 149/84 (105) 140/77 (98) 151/89 (109) 131/76 (94) Pulse Ox 99 98 97 98 O2 Delivery Room Air Room Air Room Air Room Air 12/15/18 12/15/18 12/15/18 12/15/18 12:21 16:17 20:00 21:00 Temp 99.0 98.3 99.0 Pulse 61 60 66 66 Resp 16 16 16 16 B/P (MAP) 157/84 (108) 158/83 (108) 182/102 (128) 167/86 (113) Pulse Ox 98 98 98 O2 Delivery Room Air Room Air Room Air Room Air 12/16/18 12/16/18 12/16/18 12/16/18 00:09 03:30 03:34 09:15 Temp 98.2 98.4 99.7 Pulse 66 85 72 60 Resp 16 18 16 18 B/P (MAP) 151/90 (110) 172/80 (110) 162/87 (112) 176/87 (116) Pulse Ox 98 98 99 O2 Delivery Room Air Room Air Room Air Physical Exam: General - Alert and oriented, no apparent distress Abdomen - Soft, appropriately tender to palpation, non-distended, fundus firm at umbilicus Extremities - 2+edema, negative Aristides's bilaterally Assessment: 1. post- day # 2, status post vaginal delivery. Recovering well, hemodynamically stable 2. Preeclampsia with pp elevations of blood pressure. - on labetalol Plan: Routine care. Encourage breast feeding. Encourage ambulation. Ferrous sulfate supplementation. Plan for discharge tonorrow. 20 mg lasix x 1 given due to painful edema. repeat BP 154/85, May consider Norvasc 5 mg Vitals - Labs Vital Signs - I&O Vital Signs Date Time Temp Pulse Resp B/P (MAP) Pulse Ox O2 Delivery O2 Flow Rate FiO2 12/16/18 09:15 99.7 60 18 176/87 (116) 99 Room Air 12/16/18 03:34 98.4 72 16 162/87 (112) 98 Room Air 12/16/18 03:30 85 18 172/80 (110) 12/16/18 00:09 98.2 66 16 151/90 (110) 98 Room Air 12/15/18 21:00 66 16 167/86 (113) Room Air 12/15/18 20:00 99.0 66 16 182/102 (128) 98 Room Air 12/15/18 16:17 98.3 60 16 158/83 (108) 98 Room Air 12/15/18 12:21 99.0 61 16 157/84 (108) 98 Room Air Labs Microbiology 12/12/18 Urine Culture - Final, Complete NO GROWTH JOHNSON ROSS DO Dec 16, 2018 10:27
[2018-12-16] MEDS ORDERED: FUROSEMIDE 20 MG (LASIX) TAB PO NR (10:45)
[2018-12-16] MEDS: amLODIPine 5 MG (NORVASC) TAB PO SCH (19:48)
--- NOTE | 2018-12-16 22:00 | NUR ---
assessment completed. pt denies any needs at this time. will continue to monitor.
[2018-12-17] MEDS: IBUPROFEN 600 MG (MOTRIN) TAB PO SCH ×2 (02:44→09:25)
[2018-12-17 02:59] VITALS: BP 116/67
[2018-12-17] MEDS: ACETAMINOPHEN 500 MG TAB (TYLENOL) PO SCH (05:46)
--- NOTE | 2018-12-17 07:00 | NUR ---
REPORT FROM ANDREW ARCHULETA.
[2018-12-17 09:25] VITALS: BP_SYST 116; BP_SYST 182; BP_DIAS 103; BP_DIAS 67
[2018-12-17] MEDS: amLODIPine 5 MG (NORVASC) TAB PO SCH (09:25)
[2018-12-17] MEDS: PRENATAL VITAMIN 1 EA TAB PO SCH (09:25)
[2018-12-17] MEDS: DOCUSATE SODIUM 100 MG (COLACE) CAP PO SCH (09:25)
[2018-12-17] MEDS: LABETALOL 200 MG (NORMODYNE) TAB PO SCH (09:25)
--- NOTE | 2018-12-17 09:25 | NUR ---
INITIAL ASSESSMENT COMPLETED, VSS, SEE INTERVENTIONS FOR DETAILED ASSESSMENT. S/O AT SIDE. PT SITTING UP IN CHAIR HOLDING IN ARMS AFTER CIRCUMCISION. PT DENIES C/O HEADACHE, BLURRY VISION, OR EPIGASTRIC PAIN.
--- NOTE | 2018-12-17 10:17 | Postpartum Progress Note ---
Note Note Day # 3 s/p Received Lasix 20 mg x 1. I did not wish to repeat this due to breast feeding. She had resultant diuresis. BP still elevated so ricky Sanderson md added to regimen. Not given until last night. She has not had complaints. No SOA, No chest pain, no cough, no headache. Baby has had some hypoglycemia but doing better now Subjective: Patient is without complaints. Ambulating, voiding. Tolerating a regular diet without nausea or vomiting. Normal lochia. Pain is well controlled with oral pain medications. breat feeding. [] Objective: 12/17/18 02:59 Temp 98.2 Pulse 59 Resp 20 B/P (MAP) 116/67 (83) Pulse Ox 97 O2 Delivery Room Air Physical Exam: General - Alert and oriented, no apparent distress Abdomen - Soft, appropriately tender to palpation, non-distended, fundus firm at umbilicus Extremities - 2+ edema, negative Aristides's bilaterally Assessment: 1. post- day # 3 status post spontaneous vaginal delivery. Recovering well, hemodynamically stable 2. preeclampsia, severe, recovering [] Plan: Routine care. Encourage breast feeding. Encourage ambulation. Ferrous sulfate supplementation. Plan for discharge today with BP check next week Vitals - Labs Vital Signs - I&O Vital Signs Date Time Temp Pulse Resp B/P (MAP) Pulse Ox O2 Delivery O2 Flow Rate FiO2 12/17/18 02:59 98.2 59 20 116/67 (83) 97 Room Air 12/16/18 22:00 98.6 70 20 143/76 (98) 97 Room Air 12/16/18 20:00 65 20 181/89 (119) 97 Room Air 12/16/18 15:58 99.1 62 20 158/87 (110) 98 Room Air 12/16/18 10:30 99.6 62 18 172/84 (113) 98 Room Air Labs Microbiology 12/12/18 Urine Culture - Final, Complete NO GROWTH JOHNSON ROSS DO Dec 17, 2018 10:17
--- NOTE | 2018-12-17 10:20 | NUR ---
DR ROSS HERE NEW ORDERS RECEIVED.
[2018-12-17] MEDS ORDERED: AMLO5TAB9 PO (10:21)
[2018-12-17] MEDS ORDERED: ACET-77 PO (10:21)
[2018-12-17] MEDS ORDERED: LABE200T7 PO (10:21)
[2018-12-17] MEDS ORDERED: IBUP-844 PO (10:21)
--- NOTE | 2018-12-17 10:29 | Discharge Inst-Women's Service ---
Discharge Inst-Women's Serv Depart Medication/Instructions New, Converted or Re-Newed RX: Call to Patients Pharmacy Instructions Call for headache not controlled with oral medications. Blurred vision, wavy vision, etc. Persistently elevated blood pressures (SBP >150 AND DBP > 100). Final Diagnosis preeclampsia induction 36 + week gestation vaginal delivery 2nd degree laceration epidural Consults/Follow Up Additional Follow Up: Yes ([address] De La Cruz, 6 weeks for PP exam) Activity Activity: Activity as Tolerated Driving Instructions: You May Drive NO SMOKING: NO SMOKING Nothing Inside Vagina: No Douching, No [place], No Tampons Diet Discharge Diet: No Restrictions Symptoms to Report to : Swelling Increased, Bleeding Excessive, Pain Increased, Fever Over 101 Degrees F, Vaginal Bleeding Increase, Cramps in Feet or Legs, Lightheadedness, Vaginal Discharge Foul, Dizziness/Fainting For Any Problems or Questions: Contact Your Physician Skin/Wound Care Infection Signs and Symptoms: Increased Redness, Foul Odor of Wound, Increased Drainage, Skin Itchy or Has a Rash, Increased Swelling, Temperature Above 101 F Bathing Instructions: JOHNSON Sahni DO Dec 17, 2018 10:28
--- NOTE | 2018-12-17 10:31 | NUR ---
DR ROSS NOTIFIED OF PTS BP.
[2018-12-17 11:14] VITALS: BP 158/80
--- NOTE | 2018-12-17 11:14 | NUR ---
REPEAT BP, DR ROSS NOTIFIED.
--- NOTE | 2018-12-17 14:15 | NUR ---
D/C INSTRUCTIONS EXPLAINED, SIGNED, NO QUESTIONS NOTED, VSS, PT VERBALIZES UNDERSTANDING OF FOLLOW UP CARE. MEDS CALLED IN TO PTS PHARMACY.
--- NOTE | 2018-12-17 14:35 | NUR ---
PT DISCHARGED TO HOME, AMBULATED TO PRIVATE CAR WITH SECURED REAR FACING CARSEAT AND S/O AT SIDE, NO DISTRESS NOTED.
== END 2018-12-17 14:35 | disposition home or self-care (01) | DRG 807 ==
LOC: LDRP 18:10
PROVIDERS: ADMIT Obstetrics & Gynecology; ATTEND Obstetrics & Gynecology
PROC: 3E0DXGC Introduction of Other Therapeutic Substance into Mouth and Pharynx, External Approach (ICD-10-PCS; 2018-12-12)
PROC: 10E0XZZ Delivery of Products of Conception, External Approach (ICD-10-PCS; principal; 2018-12-14)
PROC: 0HQ9XZZ Repair Perineum Skin, External Approach (ICD-10-PCS; 2018-12-14)
DX: O14.14 Severe pre-eclampsia complicating childbirth (principal); O70.0 First degree perineal laceration during delivery; Z3A.36 36 weeks gestation of pregnancy; Z37.0 Single live birth
CPT/HCPCS: 36415; 80053; 81000; 82570; 83615; 84156; 85025; 86850; 86900; 86901; 87088

== ENCOUNTER → 2020-08-24 | Outpatient (CLI) | payer BC ==
[~2020-08-24] MED LIST changes: -ACET-77 PO; +ACET-78 PO; +AMLO-250 PO; -AMLO5TAB9 PO
--- NOTE | 2020-08-24 11:37 | Diagnostic Imaging Report ---
INDICATION: survey. TECHNIQUE: Multiple Real-time grayscale images were obtained over the gravid uterus. COMPARISON: There are no prior exams available for comparison. FINDINGS: There is a single live fetus in breech presentation. heart motion was noted and a rate of 139 BPM was recorded. There is a suggestion of small bilateral choroid plexus cysts. These findings may well represent a benign process but a short-term (4-6 week) followup ultrasound exam would be recommended for further study. There are no other abnormalities identified. The growth parameters are fairly uniform. The placenta is anterior and there is no previa. The amniotic fluid volume is within normal limits. The cervix was identified and measures 5.6 cm in length. Biometrical measurements are as follows: Biparietal 4.57 cm, age 19 weeks 6 days. Head circumference 18.07 cm, age 20 weeks 4 days. Abdominal circumference 15.15 cm, age 20 weeks 3 days. Femur length 3.20 cm, age 20 weeks 0 days. Sonographic estimate age: 20 weeks 2 days. Sonographic estimated date of delivery: 01/09/2021. Estimated Weight: 339 gm (+/- 49 gm). LMP percentile: 98%. heart rate: 129 beats per minute. number: 1 of 1. IMPRESSION: 1. There is a single live fetus of approximately 20 weeks 2 days gestation +/- 1.5 weeks. The EDC is 01/09/2021. 2. There appear to be small bilateral choroid plexus cysts. Considerations and recommendations as above. 3. There are no abnormalities identified otherwise. 4. The growth parameters are fairly uniform. Dictated by: Dictated on workstation # [id number]
== END ==
LOC: RAD 10:00
PROVIDERS: ATTEND Obstetrics & Gynecology
DX: Z34.92 Encounter for supervision of normal pregnancy, unspecified, second trimester (principal); Z3A.20 20 weeks gestation of pregnancy
CPT/HCPCS: 76805

== ENCOUNTER → 2020-09-23 | Outpatient (CLI) | payer BC ==
--- NOTE | 2020-09-23 15:13 | Diagnostic Imaging Report ---
INDICATION: Follow-up choroid plexus cyst. TECHNIQUE: Multiple real-time grayscale images were obtained over the gravid uterus. COMPARISON: 08/24/2020 FINDINGS: Cervix measures 4.4 cm in length. Fetus is in cephalic presentation. Both of the cerebral ventricles of the fetus are visualized and there are no cysts within the choroid plexi on either side. The amount of amniotic fluid appears visually appropriate. heart rate is 136 bpm. IMPRESSION: Choroid plexus cysts suspected on prior ultrasound have either resolved or were artifactual. Dictated by: Dictated on workstation # [id number]
== END ==
LOC: RAD 10:00
PROVIDERS: ATTEND Obstetrics & Gynecology
DX: O35.0XX0 Maternal care for (suspected) central nervous system malformation in fetus, not applicable or unspecified (principal); Z3A.00 Weeks of gestation of pregnancy not specified
CPT/HCPCS: 76816

== ENCOUNTER 2021-01-11 19:04 | Inpatient (IN) | payer BC ==
[2021-01-11] VITALS (35 sets, daily range): BP systolic 83–157; BP diastolic 44–93
[~2021-01-11] VITALS: Ht 175.3 cm; Wt 99.8 kg
[2021-01-11] MEDS ORDERED: D5 LR IV SOLUTION 1,000 ML IV ONE (19:34)
[2021-01-11] MEDS ORDERED: MINERAL OIL CONCENTRATE 99.9% 15 ML UDC TOP PRN (20:15)
[2021-01-11 20:20] LABS: BASOPHILS % (AUTO) 0 % (0-10); EOSINOPHILS # (AUTO) 0.1 10^3/uL (0.0-0.3); EOSINOPHILS % (AUTO) 1 % (0-10); HEMATOCRIT 33 % (35-52); HEMOGLOBIN 11.5 g/dL (11.5-16.0); LYMPHOCYTES # (AUTO) 2.6 10^3/uL (1.0-4.0); LYMPHOCYTES % (AUTO) 29 % (12-44); MEAN CORPUSCULAR HEMOGLOBIN 33 pg (25-34); MEAN CORPUSCULAR HGB CONC 35 g/dL (32-36); MEAN CORPUSCULAR VOLUME 94 fL (80-99); MEAN PLATELET VOLUME 11.2 fL (9.0-12.2); MONOCYTES # (AUTO) 0.6 10^3/uL (0.0-1.0); MONOCYTES % (AUTO) 6 % (0-12); NEUTROPHILS # (AUTO) 5.7 10^3/uL (1.8-7.8); NEUTROPHILS % (AUTO) 63 % (42-75); PLATELET COUNT 164 10^3/uL (130-400); WHITE BLOOD COUNT 9.2 10^3/uL (4.3-11.0)
[2021-01-11] MEDS ORDERED: LACTATED RINGERS 1,000 ML IV ONE ×2 (20:30→22:15)
[2021-01-11] MEDS ORDERED: fentaNYL 2 mcg/ml BUPIVA 0.125 100 ML ONE (20:43)
[2021-01-11] MEDS: D5 LR IV SOLUTION 1,000 ML IV SCH (20:48)
[2021-01-11] MEDS ORDERED: PREN-142 PO (21:11)
[2021-01-11] MEDS ORDERED: BUPIVACAINE 0.25% 30 ML (SENSORCAINE) VIAL ONE (21:31)
[2021-01-11] MEDS ORDERED: fentaNYL INJ 100 MCG/2 ML AMP ONE (21:31)
[2021-01-11] MEDS ORDERED: CALCIUM CARBONATE 500 MG (TUMS) TAB.CHEW PO PRN (22:00)
[2021-01-11] MEDS: fentaNYL 2 mcg/ml BUPIVA 0.125 100 ML IV SCH (22:07)
[2021-01-11] MEDS: CATHETER FLUSH 10 ML SYR IV SCH (22:09)
[2021-01-11] MEDS ORDERED: CATHETER FLUSH 10 ML SYR IV PRN (22:15)
[2021-01-11] MEDS ORDERED: NALOXONE 0.4 MG/ML 1 ML (NARCAN) VIAL IV PRN (22:15)
[2021-01-12] VITALS (85 sets, daily range): BP systolic 98–164; BP diastolic 58–96
[2021-01-12] MEDS: D5 LR IV SOLUTION 1,000 ML IV SCH ×2 (03:19→11:11)
[2021-01-12] MEDS: fentaNYL 2 mcg/ml BUPIVA 0.125 100 ML IV SCH ×2 (06:23→14:52)
[2021-01-12] MEDS ORDERED: OXYTOCIN PRE-MIX DRIP 500 ML IV SCH (06:30)
[2021-01-12] MEDS: CATHETER FLUSH 10 ML SYR IV SCH (06:35)
--- NOTE | 2021-01-12 09:47 | History & Physical-OB ---
OB - Chief Complaint & HPI Date/Time Date of Admission: Date of Admission: Jan 11, 2021 at 19:38 Date seen by a Provider: Jan 12, 2021 Time Seen by a Provider: 09:00 Chief Complaint/History OB-Reason for Admission/Chief: Rupture of Membranes Hx : 3 Hx Para: 1 Expected Date of Delivery: Jan 17, 2021 Gestational Age in Weeks: 39 Gestational Age in Days: 1 Other reason for admission: Patient states she was bathing her older son when she thought she urinated as she stood up but then realized it was fluid. She presented with gross ROM but not in labor. She was admitted for SROM. And the expectantly managed overnight as she did begin contractions on her own. was uncomplicated A+/- VDRL NR Rub I HIV - HbSAg - HIV - GBS - Hep C - Admission Nurse Assessment Rev: Yes History of Labs A+/- VDRL NR Rub I HIV - HbSAg - HIV - GBS - Hep C - Allergies and Home Medications Allergies Coded Allergies: No Known Drug Allergies (Unverified , 12/12/18) Home Medications Vit No.124/Iron/FA 1 Each Tablet, 1 EACH PO DAILY, (Reported) Last Action: New Order Patient Home Medication List Home Medication List Reviewed: Yes OB - History Hx of Present Ultrasounds: Normal mid trimester US Obstetrical Complications: None Medical Complications: None Information Induced Hypertension: No Maternal Gestational Diabetes: No Hemorrhage: No Obstetrical History Hx : 3 Hx Para: 1 Hx # Term Pregnancies: 0 Hx # Pregnancies: 1 Number of Living Children: 1 Hx Multiple Gestation: No Hx Ectopic : No Hx Stillbirth: No Hx Complication: No Hx Induced Hypertens: Yes Hx Maternal Gestational Diabet: No Hx Hemorrhage: No Delivery History Hx Dystocia: No Hx Forceps Assisted Delivery: No Hx Vacuum Extraction Assisted: No Hx Placenta Abnormality: No Hx Distress: No Hx Large For Gestational Age I: No Hx Small for Gestational Age I: No Hx Section: No Hx Blood Disorders: No Adverse Rxn to Tranfusion: No Patient Past Medical History NC Social History/Family History Alcohol Use: Denies Use Recreational Drug Use: No Smoking Cessation: Never smoker Immunizations Hepatitis B: Yes Tetanus Booster (TDap): Less than 5yrs (11/02/20) Rubella: immune RPR/VDRL: Negative GBS Status: Negative HBsAG: Negative OB - Admission Exam Physical Exam Vitals: Vital Signs 01/12/21 01/12/21 08:03 09:00 Temp 36.2 Pulse 59 Resp 18 B/P (MAP) 127/80 (96) Pulse Ox 98 O2 Delivery Room Air Heart: Rhythm Normal Lungs: Clear Abdomen: Gravid Reflexes: Normal Cervical Dilatation: 2cm Effacement: 25% Station: Ballotable Membranes: Ruptured Amniotic Fluid: Clear Heart Rate: 120's Accelerations: Accelerations Present Decelerations: No Decelerations Short Term Variability: Present Bartenders Variability: Average (6-25) Contractions on Admission: 6-10 Minutes Apart Labs Laboratory Tests Test 01/11/21 19:45 Range/Units White Blood Count 9.2 4.3-11.0 10^3/uL Red Blood Count 3.52 L 3.80-5.11 10^6/uL Hemoglobin 11.5 11.5-16.0 g/dL Hematocrit 33 L 35-52 % Mean Corpuscular Volume 94 80-99 fL Mean Corpuscular Hemoglobin 33 25-34 pg Mean Corpuscular Hemoglobin Concent 35 32-36 g/dL Red Cell Distribution Width 12.8 10.0-14.5 % Platelet Count 164 130-400 10^3/uL Mean Platelet Volume 11.2 9.0-12.2 fL Immature Granulocyte % (Auto) 1 % Neutrophils (%) (Auto) 63 42-75 % Lymphocytes (%) (Auto) 29 12-44 % Monocytes (%) (Auto) 6 0-12 % Eosinophils (%) (Auto) 1 0-10 % Basophils (%) (Auto) 0 0-10 % Neutrophils # (Auto) 5.7 1.8-7.8 10^3/uL Lymphocytes # (Auto) 2.6 1.0-4.0 10^3/uL Monocytes # (Auto) 0.6 0.0-1.0 10^3/uL Eosinophils # (Auto) 0.1 0.0-0.3 10^3/uL Basophils # (Auto) 0.0 0.0-0.1 10^3/uL Immature Granulocyte # (Auto) 0.1 0.0-0.1 10^3/uL OB - Assessment/Plan/Diagnosis Assessment Assessment: rupture of membranes Admission Dx 1. 39 week gestation 2. SROM Admit for expectant management and augmentation as necessary. Anticipate Peds - [place] Admission Status: Inpatient Order (span 2 midnights) Reason for Inpatient Admission: labor Plan Plan: Expectant Management JOHNSON ROSS DO Jan 12, 2021 09:47
[2021-01-12] MEDS ORDERED: ONDANSETRON 4 MG/2 ML (SDV) Z0FRAN IVP PRN (10:00)
[2021-01-12] MEDS ORDERED: LIDOCAINE 1% INJ 20 ML 20 ML VIAL ONE (18:16)
--- NOTE | 2021-01-12 19:07 | OB Labor & Delivery Record ---
Vag Delivery Note Vag Delivery Note Date of Delivery: 01/12/21 Preoperative Diagnosis: Celina Hicks is a 30 /Para 3 /1 ,Gestational Age 39 weeks, SROM Postoperative Diagnosis: Same Surgeon: JOHNSON ROSS Anesthesia: epidural Delivery Type: vaginal Findings: Viable male , apgars 8/9, weight 8#5 ounces Lacerations: none Intact placenta with 3 vessel cord. No nuchal cord, body cord or shoulder dys tocia Estimated Blood Loss: 150 ml Complications: None Condition: Stable Description of Procedure: The patient is a 30 year old female who presented with complaint of spontaneous rupture of membranes. She was admitted and informed consent was obtained. Her labor course was remarkable for misoprostol cervical ripening (2 cm and thick despite ROM on admission). Epidural and pitocin augmentation. Also with a later exam had a fore bag with AROM and additional fluid. She progressed to complete dilatation and began to push. She was then set up for delivery. The 's head was delivered atraumatically in the ELIANE position. The shoulders and remainder of the infant's body were then delivered without difficulty. Upon delivery, the head was held below the level of the perineum and the mouth and nares were bulb suctioned. The cord was doubly clamped and cut and the infant was handed off to the pediatric staff. An intact placenta with 3-vessel cord delivered via Mitul and there was found to be minimal bleeding.~ Vigorous fundal massage was performed and the fundus was found to be firm. IV oxytocin was given. Examination of the vagina and perineum revealed no lacerations. Following the delivery, sponge, instrument and needle counts were correct. Mom and baby were both in stable condition in the labor suite. Vitals - Labs Vital Signs - I&O Vital Signs Date Time Temp Pulse Resp B/P (MAP) Pulse Ox O2 Delivery O2 Flow Rate FiO2 01/12/21 17:45 36.6 64 18 144/76 (98) 100 Room Air 01/12/21 17:30 60 18 137/73 (94) 99 Room Air 01/12/21 17:15 36.5 63 18 135/79 (97) 100 Room Air 01/12/21 17:00 56 18 134/83 (100) 97 Room Air 01/12/21 16:45 65 18 142/80 (100) 100 Room Air 7/6/21 16:30 67 18 128/77 (94) 100 Room Air 01/12/21 16:20 78 18 125/80 (95) 99 Room Air 01/12/21 16:13 36.2 01/12/21 16:00 52 18 139/81 (100) 97 Room Air 01/12/21 15:45 51 18 146/80 (102) 97 Room Air 01/12/21 15:30 53 18 148/83 (104) 96 Room Air 01/12/21 15:15 51 18 137/75 (95) 97 Room Air 01/12/21 15:00 52 18 120/76 (91) 98 Room Air 01/12/21 14:45 54 18 119/73 (88) 97 Room Air 01/12/21 14:30 50 18 126/75 (92) 97 Room Air 01/12/21 14:15 36.1 55 18 125/75 (92) 99 Room Air 01/12/21 14:00 63 18 113/64 (80) 98 Room Air 01/12/21 13:45 63 18 116/67 (83) 98 Room Air 01/12/21 13:30 63 18 117/74 (88) 98 Room Air 01/12/21 13:15 55 18 122/64 (83) 98 Room Air 01/12/21 13:00 57 18 124/70 (88) 99 Room Air 01/12/21 12:45 58 18 112/68 (83) 98 Room Air 01/12/21 12:30 57 18 120/69 (86) 98 Room Air 01/12/21 12:15 56 18 130/76 (94) 99 Room Air 01/12/21 12:10 36.6 01/12/21 12:00 61 18 124/68 (86) 98 Room Air 01/12/21 11:45 54 18 124/69 (87) 97 Room Air 01/12/21 11:30 56 18 124/71 (88) 97 Room Air 01/12/21 11:15 54 18 119/72 (88) 97 Room Air 01/12/21 11:00 55 18 123/72 (89) 97 Room Air 01/12/21 10:30 58 18 111/69 (83) 99 Room Air 01/12/21 10:15 62 18 120/62 (81) 99 Room Air 7/6/21 10:00 61 18 123/77 (92) 99 Room Air 01/12/21 09:55 36.3 01/12/21 09:30 63 18 130/81 (97) 100 Room Air 01/12/21 09:15 63 18 122/78 (93) 98 Room Air 01/12/21 09:00 59 18 127/80 (96) 98 Room Air 01/12/21 08:45 62 18 133/80 (97) 98 Room Air 01/12/21 08:30 63 18 132/82 (99) 98 Room Air 01/12/21 08:15 60 18 144/82 (102) 100 Room Air 01/12/21 08:03 36.2 01/12/21 08:00 60 18 119/81 (94) 100 Room Air 01/12/21 07:30 56 18 138/84 (102) 99 Room Air 01/12/21 07:15 55 18 139/86 (103) 99 Room Air 01/12/21 07:00 55 18 123/79 (94) 98 Room Air 01/12/21 06:45 54 18 133/77 (95) 99 Room Air 01/12/21 06:30 36.6 56 18 132/77 (95) 99 Room Air 01/12/21 06:15 51 18 139/80 (99) 97 Room Air 01/12/21 06:00 52 18 126/75 (92) 97 Room Air 01/12/21 05:45 52 18 141/74 (96) 97 Room Air 01/12/21 05:30 52 18 120/79 (93) 97 Room Air 01/12/21 05:15 56 18 133/82 (99) 98 Room Air 01/12/21 05:00 36.0 56 18 134/76 (95) 97 Room Air 01/12/21 04:45 53 18 121/77 (92) 98 Room Air 01/12/21 04:30 54 18 123/75 (91) 98 Room Air 01/12/21 04:15 54 18 123/74 (90) 97 Room Air 01/12/21 04:00 54 18 147/73 (97) 97 Room Air 01/12/21 03:45 55 18 121/76 (91) 97 Room Air 01/12/21 03:30 56 18 121/79 (93) 97 Room Air 01/12/21 03:15 53 18 124/81 (95) 97 Room Air 01/12/21 03:00 55 18 122/80 (94) 97 Room Air 01/12/21 02:45 36.1 54 18 130/83 (99) 98 Room Air 01/12/21 02:30 56 18 137/81 (99) 99 Room Air 01/12/21 02:15 57 18 134/83 (100) 99 Room Air 01/12/21 02:00 52 18 147/79 (101) 99 Room Air 01/12/21 01:45 55 18 136/79 (98) 99 Room Air 01/12/21 01:30 55 18 131/75 (93) 99 Room Air 01/12/21 01:15 36.3 52 18 119/70 (86) 98 Room Air 01/12/21 01:00 81 18 115/63 (80) 99 Room Air 01/12/21 00:45 55 18 115/63 (80) 98 Room Air 01/12/21 00:30 54 18 114/61 (78) 98 Room Air 01/12/21 00:15 56 18 109/59 (76) 99 Room Air 01/12/21 00:00 67 18 110/58 (75) 97 Room Air 01/11/21 23:45 59 18 115/66 (82) 99 Room Air 01/11/21 23:30 67 18 108/66 (80) 99 Room Air 01/11/21 23:15 36.0 62 18 111/66 (81) 99 Room Air 01/11/21 23:09 73 18 108/66 (80) 99 Room Air 01/11/21 22:52 71 18 104/57 (73) 100 Room Air 01/11/21 22:49 61 18 107/56 (73) 100 Room Air 01/11/21 22:46 67 18 95/50 (65) 99 Room Air 01/11/21 22:43 65 18 108/58 (75) 99 Room Air 01/11/21 22:40 75 18 101/55 (70) 98 Room Air 01/11/21 22:37 72 18 106/60 (75) 98 Room Air 01/11/21 22:34 75 18 96/55 (69) 99 Room Air 01/11/21 22:31 68 18 103/62 (76) 99 Room Air 01/11/21 22:28 69 18 110/61 (77) 98 Room Air 01/11/21 22:25 70 18 108/60 (76) 99 Room Air 01/11/21 22:22 64 18 94/52 (66) 99 Room Air 01/11/21 22:19 77 18 104/62 (76) 99 Room Air 01/11/21 22:17 36.0 81 18 110/60 (77) 99 Room Air 01/11/21 22:14 86 18 114/67 (83) 99 Room Air 01/11/21 22:11 78 18 125/67 (86) 99 Room Air 01/11/21 22:08 83 18 122/67 (85) 99 Room Air 01/11/21 22:05 74 18 131/70 (90) 99 Room Air 01/11/21 22:02 86 18 132/78 (96) 99 Room Air 01/11/21 21:59 110 18 146/76 (99) 98 Room Air 01/11/21 21:56 63 18 83/44 (57) 99 Room Air 01/11/21 21:53 86 18 119/67 (84) 99 Room Air 01/11/21 21:50 71 18 141/85 (103) 99 Room Air 01/11/21 21:47 59 18 137/86 (103) 99 Room Air 01/11/21 21:44 65 18 149/93 (111) 99 Room Air 01/11/21 21:41 63 18 154/90 (111) 99 Room Air 01/11/21 21:39 58 18 157/77 (103) 99 Room Air 01/11/21 21:22 56 18 137/80 (99) Room Air 01/11/21 20:50 36.1 56 18 126/80 (95) Room Air 01/11/21 20:21 70 18 133/85 (101) Room Air 01/11/21 19:51 68 18 136/82 (100) Room Air 01/11/21 19:18 36.2 68 18 97 Room Air 01/11/21 19:18 36.2 68 18 140/83 (102) 97 Room Air I & O 01/12/21 07:00 Intake Total 2000 ml Balance 2000 ml Labs Laboratory Tests 01/11/21 19:45: White Blood Count 9.2, Red Blood Count 3.52L, Hemoglobin 11.5, Hematocrit 33L, Mean Corpuscular Volume 94, Mean Corpuscular Hemoglobin 33, Mean Corpuscular Hemoglobin Concent 35, Red Cell Distribution Width 12.8, Platelet Count 164, Mean Platelet Volume 11.2, Immature Granulocyte % (Auto) 1, Neutrophils (%) (Auto) 63, Lymphocytes (%) (Auto) 29, Monocytes (%) (Auto) 6, Eosinophils (%) (Auto) 1, Basophils (%) (Auto) 0, Neutrophils # (Auto) 5.7, Lymphocytes # (Auto) 2.6, Monocytes # (Auto) 0.6, Eosinophils # (Auto) 0.1, Basophils # (Auto) 0.0, Immature Granulocyte # (Auto) 0.1 JOHNSON ROSS DO Jan 12, 2021 19:07
[2021-01-12] MEDS ORDERED: TETANUS,DIPTH,PERTUSS P/F (BOOSTRIX) 0.5 ML VIAL IM ONE (19:30)
[2021-01-12] MEDS ORDERED: WITCH HAZEL(TUCKS) 40 EA JAR TOP PRN (19:30)
[2021-01-12] MEDS ORDERED: BENZOCAINE/MENTHOL (DERMOPLAST) 56 ML CAN TP PRN (19:30)
[2021-01-12] MEDS ORDERED: MEASLES,MUMPS,RUBELLA 1 EA INJ SQ ONE (19:30)
[2021-01-12] MEDS: OXYTOCIN PRE-MIX DRIP 500 ML IV SCH ×2 (19:35→19:36)
[2021-01-12] MEDS ORDERED: IBUPROFEN 600 MG (MOTRIN) TAB PO ONE (21:13)
[2021-01-12] MEDS: ACETAMINOPHEN 500 MG TAB (TYLENOL) PO SCH (21:18)
[2021-01-12] MEDS: IBUPROFEN 600 MG (MOTRIN) TAB PO SCH (21:18)
[2021-01-12] MEDS: DOCUSATE SODIUM 100 MG (COLACE) CAP PO SCH (21:18)
[2021-01-12] MEDS ORDERED: CATHETER FLUSH 10 ML SYR IV SCH (22:00)
[2021-01-13] VITALS (7 sets, daily range): BP systolic 134–144; BP diastolic 68–86
[2021-01-13] MEDS: IBUPROFEN 600 MG (MOTRIN) TAB PO SCH ×4 (02:55→20:56)
[2021-01-13] MEDS: ACETAMINOPHEN 500 MG TAB (TYLENOL) PO SCH ×2 (05:36→14:34)
[2021-01-13] MEDS ORDERED: PRENATAL VITAMIN 1 EA TAB PO SCH (07:00)
[2021-01-13 07:28] LABS: BASOPHILS % (AUTO) 0 % (0-10); EOSINOPHILS # (AUTO) 0.1 10^3/uL (0.0-0.3); EOSINOPHILS % (AUTO) 1 % (0-10); HEMATOCRIT 33 % (35-52); LYMPHOCYTES # (AUTO) 2.7 10^3/uL (1.0-4.0); LYMPHOCYTES % (AUTO) 26 % (12-44); MEAN CORPUSCULAR HEMOGLOBIN 33 pg (25-34); MEAN CORPUSCULAR HGB CONC 34 g/dL (32-36); MEAN CORPUSCULAR VOLUME 96 fL (80-99); MEAN PLATELET VOLUME 11.8 fL (9.0-12.2); MONOCYTES # (AUTO) 0.8 10^3/uL (0.0-1.0); MONOCYTES % (AUTO) 7 % (0-12); NEUTROPHILS # (AUTO) 6.5 10^3/uL (1.8-7.8); NEUTROPHILS % (AUTO) 65 % (42-75); PLATELET COUNT 133 10^3/uL (130-400); WHITE BLOOD COUNT 10.1 10^3/uL (4.3-11.0)
[2021-01-13] MEDS: DOCUSATE SODIUM 100 MG (COLACE) CAP PO SCH ×2 (08:29→20:57)
[2021-01-13] MEDS ORDERED: FERROUS SULF 325 MG (IRON) TAB PO SCH (09:00)
--- NOTE | 2021-01-13 12:54 | Anesthesia-Regional Post-Op ---
Regional Patient Condition Mental Status: Alert, Oriented x3 Circulation: Same as Pre-Op Headache: Absent Sensation: Full Recovery Motor Block: Absent Post Op Complications Complications None Follow Up Care/Instructions Patient Instructions None needed. Anesthesia/Patient Condition Patient is doing well, no complaints, stable vital signs, no apparent adverse anesthesia problems. No complications reported per nursing. D/C home per [facility] Criteria: Yes AUBREE HOYOS CRNA Jan 13, 2021 12:54
--- NOTE | 2021-01-13 13:07 | Postpartum Progress Note ---
Note Note Day # 1 s/p Subjective: Patient is without complaints. Ambulating, voiding. Tolerating a regular diet w ithout nausea or vomiting. Normal lochia. Pain is well controlled with oral pain medications. breast feeding. [] Objective: 01/13/21 05:36 Temp 36.3 Pulse 55 Resp 18 B/P (MAP) 138/82 (100) Pulse Ox 97 O2 Delivery Room Air 01/13/21 00:00 Intake Total 490 ml Balance 490 ml Laboratory Tests Test 01/13/21 07:12 Range/Units White Blood Count 10.1 4.3-11.0 10^3/uL Red Blood Count 3.37 L 3.80-5.11 10^6/uL Hemoglobin 11.0 L 11.5-16.0 g/dL Hematocrit 33 L 35-52 % Mean Corpuscular Volume 96 80-99 fL Mean Corpuscular Hemoglobin 33 25-34 pg Mean Corpuscular Hemoglobin Concent 34 32-36 g/dL Red Cell Distribution Width 12.8 10.0-14.5 % Platelet Count 133 130-400 10^3/uL Mean Platelet Volume 11.8 9.0-12.2 fL Immature Granulocyte % (Auto) 1 % Neutrophils (%) (Auto) 65 42-75 % Lymphocytes (%) (Auto) 26 12-44 % Monocytes (%) (Auto) 7 0-12 % Eosinophils (%) (Auto) 1 0-10 % Basophils (%) (Auto) 0 0-10 % Neutrophils # (Auto) 6.5 1.8-7.8 10^3/uL Lymphocytes # (Auto) 2.7 1.0-4.0 10^3/uL Monocytes # (Auto) 0.8 0.0-1.0 10^3/uL Eosinophils # (Auto) 0.1 0.0-0.3 10^3/uL Basophils # (Auto) 0.0 0.0-0.1 10^3/uL Immature Granulocyte # (Auto) 0.1 0.0-0.1 10^3/uL Percent Immature Platelet Fraction 7.2 0.0-7.6 % Physical Exam: General - Alert and oriented, no apparent distress Abdomen - Soft, appropriately tender to palpation, non-distended, fundus firm at umbilicus Extremities - no edema, negative Aristides's bilaterally Assessment: 1 post- day # 1, status post spontaneous vaginal delivery. Recovering well, hemodynamically stable Plan: Routine care. Encourage breast feeding. Encourage ambulation. Ferrous sulfate supplementation. Plan for discharge Vitals - Labs Vital Signs - I&O Vital Signs Date Time Temp Pulse Resp B/P (MAP) Pulse Ox O2 Delivery O2 Flow Rate FiO2 01/13/21 05:36 36.3 55 18 138/82 (100) 97 Room Air 01/13/21 01:00 36.6 82 18 144/74 (97) 96 Room Air 01/12/21 22:20 37.2 88 18 140/78 (98) Room Air 01/12/21 21:50 37.0 70 18 123/70 (87) Room Air 01/12/21 21:15 37.1 68 18 155/90 (111) Room Air 01/12/21 21:00 65 18 164/96 (118) Room Air 01/12/21 20:45 36.9 64 18 161/93 (115) Room Air 01/12/21 20:30 59 18 152/85 (107) Room Air 01/12/21 20:15 37.0 62 18 140/81 (100) Room Air 01/12/21 20:00 62 18 144/81 (102) Room Air 01/12/21 19:45 63 18 144/73 (96) Room Air 01/12/21 19:30 37.1 71 18 112/69 (83) Room Air 01/12/21 19:15 36.4 79 18 125/76 (92) Room Air 01/12/21 19:00 37.1 71 18 137/60 (85) Room Air 01/12/21 18:55 36.8 01/12/21 18:45 90 18 129/88 (102) Room Air 01/12/21 18:30 71 18 132/83 (99) 98 Room Air 01/12/21 18:15 67 18 98/71 (80) 100 Room Air 01/12/21 18:00 56 18 120/63 (82) 100 Room Air 01/12/21 17:45 36.6 64 18 144/76 (98) 100 Room Air 01/12/21 17:30 60 18 137/73 (94) 99 Room Air 01/12/21 17:15 36.5 63 18 135/79 (97) 100 Room Air 01/12/21 17:00 56 18 134/83 (100) 97 Room Air 01/12/21 16:45 65 18 142/80 (100) 100 Room Air 01/12/21 16:30 67 18 128/77 (94) 100 Room Air 01/12/21 16:20 78 18 125/80 (95) 99 Room Air 01/12/21 16:13 36.2 01/12/21 16:00 52 18 139/81 (100) 97 Room Air 01/12/21 15:45 51 18 146/80 (102) 97 Room Air 01/12/21 15:30 53 18 148/83 (104) 96 Room Air 01/12/21 15:15 51 18 137/75 (95) 97 Room Air 01/12/21 15:00 52 18 120/76 (91) 98 Room Air 01/12/21 14:45 54 18 119/73 (88) 97 Room Air 01/12/21 14:30 50 18 126/75 (92) 97 Room Air 01/12/21 14:15 36.1 55 18 125/75 (92) 99 Room Air 01/12/21 14:00 63 18 113/64 (80) 98 Room Air 01/12/21 13:45 63 18 116/67 (83) 98 Room Air 01/12/21 13:30 63 18 117/74 (88) 98 Room Air 01/12/21 13:15 55 18 122/64 (83) 98 Room Air I & O 01/13/21 07:00 Intake Total 1490 ml Balance 1490 ml Labs Laboratory Tests 01/13/21 07:12: White Blood Count 10.1, Red Blood Count 3.37L, Hemoglobin 11.0L, Hematocrit 33L, Mean Corpuscular Volume 96, Mean Corpuscular Hemoglobin 33, Mean Corpuscular Hemoglobin Concent 34, Red Cell Distribution Width 12.8, Platelet Count 133, Mean Platelet Volume 11.8, Immature Granulocyte % (Auto) 1, Neutrophils (%) (Auto) 65, Lymphocytes (%) (Auto) 26, Monocytes (%) (Auto) 7, Eosinophils (%) (Auto) 1, Basophils (%) (Auto) 0, Neutrophils # (Auto) 6.5, Lymphocytes # (Auto) 2.7, Monocytes # (Auto) 0.8, Eosinophils # (Auto) 0.1, Basophils # (Auto) 0.0, Immature Granulocyte # (Auto) 0.1, Percent Immature Platelet Fraction 7.2 JOHNSON ROSS DO Jan 13, 2021 13:07
[2021-01-13] MEDS ORDERED: IBUP-844 PO (13:10)
[2021-01-13] MEDS ORDERED: ACET-93 PO (13:10)
--- NOTE | 2021-01-13 13:11 | Discharge Inst-Women's Service ---
Discharge Inst-Women's Serv Depart Medication/Instructions New, Converted or Re-Newed RX: Transmitted to Pharmacy Final Diagnosis vaginal delivery Consults/Follow Up Additional Follow Up: Yes (6 weeks for and pap/colposcopy) Activity Activity: Activity as Tolerated Driving Instructions: You May Drive NO SMOKING: NO SMOKING Nothing Inside Vagina: No Douching, No [place], No Tampons Diet Discharge Diet: No Restrictions Symptoms to Report to : Swelling Increased, Pain Increased, Fever Over 101 Degrees F, Vaginal Bleeding Increase, Cramps in Feet or Legs, Vaginal Discharge Foul For Any Problems or Questions: Contact Your Physician JOHNSON ROSS DO Jan 13, 2021 13:11
[2021-01-13] MEDS ORDERED: OXC5T PO (20:58)
== END 2021-01-13 21:12 | disposition home or self-care (01) | DRG 807 ==
LOC: LDRP 19:04 → WSo 19:04 → LDRP 19:38 → WSo 19:38 → LDRP 01-12 22:20
PROVIDERS: ADMIT Obstetrics & Gynecology; ATTEND Obstetrics & Gynecology
PROC: 10E0XZZ Delivery of Products of Conception, External Approach (ICD-10-PCS; principal; 2021-01-12)
DX: O80 Encounter for full-term uncomplicated delivery (principal); Z37.0 Single live birth; Z3A.39 39 weeks gestation of pregnancy
CPT/HCPCS: 36415; 85025; 86850; 86900; 86901; 99212

== ENCOUNTER → 2021-07-29 | Outpatient (CLI) | payer BC ==
[~2021-07-29] MED LIST changes: +ACET-93 PO; +OXC5T PO; +PREN-142 PO
== END ==
LOC: LABNPT 08:00
PROVIDERS: ATTEND Internal Medicine
DX: Z20.822 Contact with and (suspected) exposure to COVID-19 (principal)
CPT/HCPCS: 87635